=== PATIENT | male | born 1980 | race Caucasian/White ===

== ENCOUNTER 2024-10-25 15:04 | Emergency (ER) | payer SELFPAY ==
[~2024-10-25] VITALS: Ht 180.3 cm; Wt 113.3 kg
[2024-10-25 15:18] VITALS: BP 118/71
[2024-10-25 15:30] VITALS: BP 116/73
[2024-10-25 16:00] VITALS: BP 110/67
[2024-10-25] MEDS ORDERED: KETOROLAC TROMETHAMINE 30 MG/ML SDV IV ONE (16:00)
[2024-10-25 16:03] LABS: BASO% 0.3 % (0-3); EOS% 1.5 % (0-8); HEMATOCRIT 44.5 % (39.0-50.0); HEMOGLOBIN 14.8 g/dl (14.0-18.0); IMMATURE GRANULOCYTES 0.1 % (0.0-5.0); LYMPH% 22.6 % (15-41); MEAN CORPUSCULAR HGB 29.6 pG CALC (26.0-32.0); MEAN CORPUSCULAR HGB CONC 33.3 g/dL CAL (32.0-36.0); MONO% 9.1 % (2-13); NEUT# 6.47 thou/uL (1.82-7.42); NEUT% 66.4 % (42-76); RED CELL DISTRI WIDTH 12.8 % (11.5-15.5)
[2024-10-25 16:23] LABS: ALBUMIN 4.3 g/dL (3.2-5.0); BILIRUBIN, TOTAL 0.5 mg/dL (0.2-1.3); CREATININE 0.9 mg/dL (0.7-1.3); POTASSIUM 4.2 mmol/l (3.5-5.1); TOTAL PROTEIN 7.1 g/dL (6.3-8.2)
[2024-10-25 16:30] VITALS: BP 94/59
[2024-10-25] MEDS ORDERED: AMOX/K CLAV875 M1 PO (16:55)
[2024-10-25 17:10] VITALS: BP 94/59
== END 2024-10-25 17:14 | disposition home or self-care (01) | DRG 603 ==
LOC: ED 15:04
PROVIDERS: Family Medicine
DX: L03.116 Cellulitis of left lower limb (principal)

== ENCOUNTER 2024-11-15 16:40 | Emergency (ER) | payer BC ==
[~2024-11-15] VITALS: Ht 180.3 cm; Wt 134.0 kg
[~2024-11-15 16:40] MED LIST: AMOX/K CLAV875 M1 PO
[2024-11-15 17:38] VITALS: BP 107/68
[2024-11-15 17:45] VITALS: BP 106/64
[2024-11-15 17:50] LABS: BASO% 0.4 % (0-3); EOS% 1.4 % (0-8); HEMATOCRIT 42.3 % (39.0-50.0); HEMOGLOBIN 14.2 g/dl (14.0-18.0); IMMATURE GRANULOCYTES 0.1 % (0.0-5.0); LYMPH% 24.8 % (15-41); MEAN CELL VOLUME 89.1 fL CALC (80.0-100.0); MEAN CORPUSCULAR HGB 29.9 pG CALC (26.0-32.0); MEAN CORPUSCULAR HGB CONC 33.6 g/dL CAL (32.0-36.0); MONO% 8.8 % (2-13); NEUT# 5.95 thou/uL (1.82-7.42); NEUT% 64.5 % (42-76); RED BLOOD COUNT 4.75 mill/uL (4.70-6.10); RED CELL DISTRI WIDTH 12.6 % (11.5-15.5)
[2024-11-15 18:00] VITALS: BP 110/68
[2024-11-15 18:10] LABS: ALBUMIN 4.1 g/dL (3.2-5.0); ALKALINE PHOSPHATASE 84 u/l (38-126); ANION GAP 11 (6-22 (CALC)); BILIRUBIN, TOTAL 0.3 mg/dL (0.2-1.3); BUN 22 mg/dL (9-20); BUN/CREATININE RATIO 26 (12-20 (CALC)); CARBON DIOXIDE 26 mmol/l (22-30); CHLORIDE 107 mmol/l (95-108); CREATININE 0.8 mg/dL (0.7-1.3); ESTIMATED GFR 113 ML/MIN (>=90 (CALC)); POTASSIUM 4.3 mmol/l (3.5-5.1); SGOT/AST 34 u/l (17-59); SODIUM 140 mmol/l (137-146); TOTAL PROTEIN 6.5 g/dL (6.3-8.2)
[2024-11-15] MEDS ORDERED: DOXYCYCLINE HYCLATE 100 MG in SODIUM CHLORIDE 0.9% 100 ML IV ONE (18:10)
[2024-11-15 18:11] LABS: C-REACTIVE PROTEIN < 0.5 mg/dL (0-0.9)
[2024-11-15] MEDS ORDERED: KETOROLAC TROMETHAMINE 30 MG/ML SDV IV ONE (18:30)
[2024-11-15] MEDS ORDERED: VIBRAMYCIN100 M2 PO (19:05)
[2024-11-15 20:08] VITALS: BP 110/68
== END 2024-11-15 20:15 | disposition home or self-care (01) | DRG 603 ==
LOC: ED 16:40
PROVIDERS: Nurse Practitioner
DX: L03.116 Cellulitis of left lower limb (principal); F41.9 Anxiety disorder, unspecified